=== PATIENT | female | born 1990 | race Caucasian/White ===

== ENCOUNTER → 2016-12-30 | Outpatient (CLI) | payer OTHER ==
[~2016-12-30] MED LIST: HYDR50TA3 PO; LEVO25TA4 PO; TRAM50TA2 PO
[2016-12-30 11:02] LABS: BLOOD UREA NITROGEN 10 mg/dL (7-18)
[2016-12-30 11:09] LABS: ASPARTATE AMINO TRANSFERASE 11 U/L (15-37)
== END | disposition home or self-care (01) ==
LOC: STAR 09:36
PROVIDERS: ATTEND Obstetrics & Gynecology
DX: N80.9 Endometriosis, unspecified (principal); R10.2 Pelvic and perineal pain
CPT/HCPCS: 36415; 80053; 84703; 85025

== ENCOUNTER 2017-01-07 07:50 | Observation (INO) | payer OTHER ==
[~2017-01-07] VITALS: Ht 160 cm; Wt 54.9 kg
[2017-01-07 08:25] VITALS: BP 143/98
[2017-01-07] MEDS ORDERED: LACTATED RINGERS 1,000 ML IV SCH ×2 (08:29→11:37)
[2017-01-07 09:06] LABS: HCG UR OBC PASS
[2017-01-07] MEDS ORDERED: BUPIVACAINE/PF-EPI 0.5% 1:200K ONE (09:34)
[2017-01-07] MEDS ORDERED: FENTANYL PF 100 MCG/2ML ONE ×5 (09:45→11:29)
[2017-01-07] MEDS ORDERED: DEXAMETHASONE 4 MG/ML, 5ML ONE (10:05)
[2017-01-07] MEDS ORDERED: CEFAZOLIN 1,000 MG ONE (10:05)
[2017-01-07] MEDS ORDERED: PROPOFOL 10 MG/ML, 20ML ONE (10:05)
[2017-01-07] MEDS ORDERED: ROCURONIUM 10 MG/ML ONE (10:05)
[2017-01-07] MEDS ORDERED: NEOSTIGMINE 1 MG/ML, 10ML ONE (10:05)
[2017-01-07] MEDS ORDERED: GLYCOPYRROLATE 0.2MG/1ML, 5ML ONE (10:05)
[2017-01-07] MEDS ORDERED: ONDANSETRON 2MG/ML, 2ML ONE (10:05)
[2017-01-07] MEDS ORDERED: OXYcodone 5 MG/5 ML ORAL.SOL UDC PO PRN (11:00)
[2017-01-07] MEDS ORDERED: ONDANSETRON 2MG/ML, 2ML IVPush PRN ×2 (11:00→12:00)
[2017-01-07] MEDS ORDERED: ACETAMINOPHEN 325 MG TABLET PO PRN (11:00)
[2017-01-07] MEDS ORDERED: LABETALOL 5MG/ML, 20ML IV PRN (11:00)
[2017-01-07] MEDS ORDERED: FENTANYL PF 100 MCG/2ML IV PRN (11:00)
[2017-01-07] MEDS ORDERED: MEPERIDINE/PF 25MG/0.5ML IVPush PRN (11:00)
[2017-01-07] MEDS ORDERED: MIDAZOLAM 1 MG/ML, 2ML ONE (11:29)
[2017-01-07] MEDS ORDERED: PROMETHAZINE 25 MG/ML, 1ML ONE (11:54)
[2017-01-07] MEDS ORDERED: HYDROmorphone 2 MG/ML, 1ML ONE (11:54)
[2017-01-07] MEDS: PROMETHAZINE 25 MG/ML, 1ML IV PRN ×2 (11:54→12:25)
[2017-01-07] MEDS: HYDROmorphone 1 MG/ML, 1ML IV PRN ×4 (11:59→12:59)
[2017-01-07] MEDS ORDERED: IBUPROFEN 600 MG TABLET PO PRN (12:00)
[2017-01-07] MEDS ORDERED: KETOROLAC 30 MG/1 ML IVPush PRN (12:00)
[2017-01-07] MEDS ORDERED: HYDROmorphone 2 MG/ML, 1ML IVPush PRN (12:00)
[2017-01-07] MEDS ORDERED: OXYcodone/APAP 5/325MG TABLET PO PRN (12:00)
[2017-01-07] MEDS ORDERED: OXYcodone 5 MG/5 ML ORAL.SOL UDC ONE (12:32)
[2017-01-07] MEDS ORDERED: ACETAMINOPHEN 650 MG/20.3 ML UDC ONE (12:32)
[2017-01-09] MEDS ORDERED: HYDROmorphone 1 MG/ML, 1ML IV PRN (19:00)
[2017-01-09] MEDS ORDERED: FENTANYL PF 100 MCG/2ML IV PRN (19:00)
[2017-01-09] MEDS ORDERED: ACETAMINOPHEN 325 MG TABLET PO PRN (19:00)
[2017-01-09] MEDS ORDERED: LABETALOL 5MG/ML, 20ML IV PRN (19:00)
[2017-01-09] MEDS ORDERED: OXYcodone 5 MG/5 ML ORAL.SOL UDC PO PRN (19:00)
[2017-01-09] MEDS ORDERED: HYDROmorphone 2 MG/ML, 1ML IVPush PRN (19:00)
[2017-01-09] MEDS ORDERED: ONDANSETRON 2MG/ML, 2ML IVPush PRN ×2 (19:00)
[2017-01-09] MEDS ORDERED: PROMETHAZINE 25 MG/ML, 1ML IV PRN (19:00)
[2017-01-14] MEDS ORDERED: IBUP-1223 PO (16:51)
[2017-01-23] MEDS ORDERED: HYDROmorphone 1 MG/ML, 1ML IV PRN (20:00)
[2017-01-23] MEDS ORDERED: LABETALOL 5MG/ML, 20ML IV PRN (20:00)
[2017-01-23] MEDS ORDERED: OXYcodone/APAP 5/325MG TABLET PO PRN (20:00)
[2017-01-23] MEDS ORDERED: LACTATED RINGERS 1,000 ML IV SCH ×2 (20:00)
[2017-01-23] MEDS ORDERED: FENTANYL PF 100 MCG/2ML IV PRN (20:00)
[2017-01-23] MEDS ORDERED: HYDROmorphone 2 MG/ML, 1ML IVPush PRN (20:00)
[2017-01-23] MEDS ORDERED: ONDANSETRON 2MG/ML, 2ML IVPush PRN ×2 (20:00)
[2017-01-23] MEDS ORDERED: ACETAMINOPHEN 325 MG TABLET PO PRN (20:00)
[2017-01-23] MEDS ORDERED: PROMETHAZINE 25 MG/ML, 1ML IV PRN (20:00)
[2017-01-23] MEDS ORDERED: IBUPROFEN 600 MG TABLET PO PRN (20:00)
[2017-01-23] MEDS ORDERED: OXYcodone 5 MG/5 ML ORAL.SOL UDC PO PRN (20:00)
[2017-01-23] MEDS ORDERED: MEPERIDINE/PF 25MG/0.5ML IVPush PRN (20:00)
== END 2017-01-07 15:00 | disposition home or self-care (01) ==
LOC: OUT 07:50 → ORIP 11:37
PROVIDERS: ADMIT Obstetrics & Gynecology; ATTEND Obstetrics & Gynecology
DX: N80.9 Endometriosis, unspecified (principal); R10.2 Pelvic and perineal pain; G89.29 Other chronic pain; N83.202 Unspecified ovarian cyst, left side; F41.9 Anxiety disorder, unspecified; J45.909 Unspecified asthma, uncomplicated; I10 Essential (primary) hypertension; N94.10 Unspecified dyspareunia; Z81.8 Family history of other mental and behavioral disorders; Z82.49 Family history of ischemic heart disease and other diseases of the circulatory system; Z83.3 Family history of diabetes mellitus
CPT/HCPCS: 58571; 81025; 88307; G0378; J0690; J1100; J1170; J2250; J2405; J2550; J2704; J2710; J3010; J3490

== ENCOUNTER 2017-01-14 16:30 | Emergency (ER) | payer OTHER ==
[~2017-01-14] VITALS: Ht 160 cm; Wt 55.0 kg
[2017-01-14] MEDS ORDERED: OXYC-302 PO (16:51)
[2017-01-14] MEDS ORDERED: IBUP800T PO (16:51)
[2017-01-14] MEDS ORDERED: ESTR0.5T PO (16:51)
[2017-01-14] MEDS ORDERED: SODIUM CHLORIDE FLUSH 10ML SYR IVF ONE (18:00)
[2017-01-14 18:01] LABS: HEMATOCRIT 38.2 % (34.6-47.8); HEMOGLOBIN 12.4 g/dL (11.7-16.4)
[2017-01-14] MEDS ORDERED: SODIUM CHLORIDE 0.9% 1,000ML IVBOLUS ONE (18:30)
[2017-01-14] MEDS ORDERED: ONDANSETRON 2MG/ML, 2ML ONE (19:49)
[2017-01-14 23:07] VITALS: BP 113/79
== END 2017-01-14 23:23 | disposition home or self-care (01) ==
LOC: ED 19:34
DX: N93.9 Abnormal uterine and vaginal bleeding, unspecified (principal); Z90.710 Acquired absence of both cervix and uterus
CPT/HCPCS: 36415; 76856; 85025; 86850; 86900; 96360; 96361; 99285; J7030